=== PATIENT | female | born 1965 | race Caucasian/White ===

== ENCOUNTER 2020-05-03 19:46 | Emergency (ER) | payer OTHER ==
[~2020-05-03] VITALS: Ht 165.1 cm; Wt 77.1 kg
[2020-05-03] MEDS ORDERED: FORTAMET500 MG (19:55)
== END 2020-05-04 07:44 | disposition home or self-care (01) ==
LOC: ER 19:46
DX: L03.115 Cellulitis of right lower limb (principal)

== ENCOUNTER 2021-08-31 18:41 | Inpatient (IN) | payer OTHER ==
[~2021-08-31] VITALS: Ht 165.1 cm; Wt 68.0 kg
[~2021-08-31 18:41] MED LIST: FORTAMET500 MG
[2021-08-31] MEDS ORDERED: NEURONTIN600 M1 PO (19:01)
--- NOTE | 2021-08-31 19:06 | NUR ---
SE RECIBE PTRE ALERTA Y ORIENTADA X3, LA CUAL REFIERE TENER DOLOR EN LA PLANTA DEL PIES DERECHO. SE OBSERVA AREA INFLAMADA Y HEMATOMA EN LA MISMA.
--- NOTE | 2021-08-31 19:56 | NUR ---
PTE EVALUADA POR DRA. CUMMINGS. MS SPRINGER ORIENTA A PTE SOBRE TRATAMIENTO A SEGUIR, EL CUAL REFIERE ENTENDER. SE COLECTAN MUESTRAS Y CANALIZA PTE CON MEDIDAS ASEPTICAS Y ADMINISTRA MEDICAMENTOS [facility] ORDEN MEDICA.
--- NOTE | 2021-08-31 23:58 | NUR ---
SE RECIBE PTE ALERTA Y ORIENTADA X3 EN ANTONIA CON BARANDAS ELEVADAS [place]. SE RECIBE PTE CANALIZADA AREA JONNA DE EDEMA Y DE ENROJECIMIENTO. SE EDUCA A PTE DE FREDDIE DE MUESTRA DE U/A PENDING. PTE EN ESPERA DE CONSULTA CON DR.LUIS THOMAS.
--- NOTE | 2021-09-01 07:33 | NUR ---
SE RECIBE PACIENTE DE TURNO ANTERIOR ALERTA Y ORIENTADA EN TIEMPO LUGAR Y PERSONA. CON BARANDAS ELEVADAS Y FRENOS AJUSTADOS POR SEGURIDAD. CON VENOPUNCION PATENTE, JONNA DE ERITEMA Y EDEMA RECIBIENDO AL MOMENTO 0.9 NSS 1000ML A 150ML/HR. PENDIENTE RESULTADOS DE LABORATORIOS Y CONSULTA CON DR. THOMAS. SE ORIENTA SOBRE CONTINUIDAD DE CUIDADO Y TRATAMIENTO DE ENFERMERIA. SE MANTIENE PACIENTE EN OBSERVACION POR CAMBIOS EN ELIAS CONDICION.
[2021-09-22] MEDS ORDERED: INTEGRA PLUS C1 EACH PO (12:50)
[2021-09-22] MEDS ORDERED: AMLODIPINE BESYL5 MG PO (12:50)
[2021-09-22] MEDS ORDERED: NEURONTIN600 MG PO (12:51)
[2021-09-22] MEDS ORDERED: GABAPENTIN300 MG PO (12:51)
[2021-09-22] MEDS ORDERED: PRE PROTEIN1 EACH PO (12:52)
[2021-09-22] MEDS ORDERED: INTESTINEX680 M1 PO (12:53)
[2021-09-22] MEDS ORDERED: PANTOPRAZOLE SO40 MG PO (12:54)
[2021-09-22] MEDS ORDERED: METFORMIN HCL1000 M2 PO (12:55)
[2021-09-22] MEDS ORDERED: SEMGLEE100 UNIT/1 SUBCUTANEO (12:58)
== END 2021-09-22 13:24 | disposition home or self-care (01) | DRG 571 ==
LOC: ER 18:41 → MEDI 09-01 08:29
PROVIDERS: ADMIT Internal Medicine; ATTEND Internal Medicine
PROC: BQ3GZZZ Magnetic Resonance Imaging (MRI) of Right Ankle (ICD-10-PCS; 2021-09-01)
PROC: 0Y9M0ZZ Drainage of Right Foot, Open Approach (ICD-10-PCS; 2021-09-02)
PROC: B44HZZZ Ultrasonography of Bilateral Lower Extremity Arteries (ICD-10-PCS; 2021-09-03)
PROC: 0JBQ0ZZ Excision of Right Foot Subcutaneous Tissue and Fascia, Open Approach (ICD-10-PCS; principal; 2021-09-04)
PROC: 0HBMXZZ Excision of Right Foot Skin, External Approach (ICD-10-PCS; 2021-09-04)
PROC: 0JBQ0ZZ Excision of Right Foot Subcutaneous Tissue and Fascia, Open Approach (ICD-10-PCS; 2021-09-06)
PROC: 0HBMXZZ Excision of Right Foot Skin, External Approach (ICD-10-PCS; 2021-09-06)
PROC: 0HBMXZZ Excision of Right Foot Skin, External Approach (ICD-10-PCS; 2021-09-09)
DX: L03.115 Cellulitis of right lower limb (principal); T81.49XA Infection following a procedure, other surgical site, initial encounter; N17.9 Acute kidney failure, unspecified; E11.40 Type 2 diabetes mellitus with diabetic neuropathy, unspecified; E11.65 Type 2 diabetes mellitus with hyperglycemia; I11.9 Hypertensive heart disease without heart failure; Z79.84 Long term (current) use of oral hypoglycemic drugs
CPT/HCPCS: 73722

== ENCOUNTER 2022-08-29 14:57 | Emergency (ER) | payer OTHER ==
[~2022-08-29] VITALS: Ht 165.1 cm; Wt 72.6 kg
[~2022-08-29 14:57] MED LIST changes: +AMLODIPINE BESYL5 MG PO; +GABAPENTIN300 MG PO; +INTEGRA PLUS C1 EACH PO; +INTESTINEX680 M1 PO; +METFORMIN HCL1000 M2 PO; +NEURONTIN600 M1 PO; +NEURONTIN600 MG PO; +PANTOPRAZOLE SO40 MG PO; +PRE PROTEIN1 EACH PO; +SEMGLEE100 UNIT/1 SUBCUTANEO
[2022-08-29] MEDS ORDERED: DICLOFENAC SODI75 MG PO (17:56)
== END 2022-08-29 18:42 | disposition home or self-care (01) ==
LOC: ER 14:57
DX: R07.89 Other chest pain (principal); Z91.013 Allergy to seafood; E11.9 Type 2 diabetes mellitus without complications; I10 Essential (primary) hypertension

== ENCOUNTER 2024-01-28 07:13 | Outpatient (CLI) | payer OTHER ==
[~2024-01-28 07:13] MED LIST changes: +DICLOFENAC SODI75 MG PO
== END 2024-01-28 07:17 | disposition home or self-care (01) ==
LOC: NUCLEAR 07:13
PROVIDERS: ATTEND Internal Medicine Gastroenterology
DX: K30 Functional dyspepsia (principal); R10.10 Upper abdominal pain, unspecified; R11.0 Nausea

== ENCOUNTER 2024-02-02 07:07 | Outpatient (CLI) | payer OTHER | END 2024-02-02 07:17 | disposition home or self-care (01) | LOC: TOM 07:07 | PROVIDERS: ATTEND Internal Medicine Gastroenterology | DX: R10.10 Upper abdominal pain, unspecified (principal); R10.30 Lower abdominal pain, unspecified ==